=== PATIENT | female | born 1985 | race Caucasian/White ===

== ENCOUNTER → 2020-10-27 | Outpatient (CLI) | payer OTHER | END | disposition home or self-care (01) | LOC: LABWHC1 08:30 | PROVIDERS: ATTEND Obstetrics & Gynecology Reproductive Endocrinology | DX: O00.101 Right tubal pregnancy without intrauterine pregnancy (principal) | CPT/HCPCS: 36415; 84702 ==

== ENCOUNTER → 2020-11-03 | Outpatient (CLI) | payer OTHER | END | disposition home or self-care (01) | LOC: LABWHC1 09:13 | PROVIDERS: ATTEND Obstetrics & Gynecology Reproductive Endocrinology | DX: O00.101 Right tubal pregnancy without intrauterine pregnancy (principal) | CPT/HCPCS: 36415; 84702 ==

== ENCOUNTER → 2020-11-10 | Outpatient (CLI) | payer OTHER | END | disposition home or self-care (01) | LOC: LABWHC1 09:22 | PROVIDERS: ATTEND Obstetrics & Gynecology Reproductive Endocrinology | DX: O00.101 Right tubal pregnancy without intrauterine pregnancy (principal) | CPT/HCPCS: 36415; 84702 ==